=== PATIENT | female | born 1970 | race Caucasian/White ===

== ENCOUNTER 2017-03-22 22:31 | Emergency (ER) | payer OTHER | END 2017-03-23 04:58 | disposition home or self-care (01) | LOC: FTE 22:31 | DX: H60.91 Unspecified otitis externa, right ear (principal); I10 Essential (primary) hypertension; E11.9 Type 2 diabetes mellitus without complications; Z79.82 Long term (current) use of aspirin; Z79.84 Long term (current) use of oral hypoglycemic drugs | CPT/HCPCS: 99284; Z7502 ==

== ENCOUNTER 2017-06-25 22:45 | Emergency (ER) | payer OTHER | END 2017-06-26 01:31 | disposition home or self-care (01) | LOC: FTE 22:45 → E/R 06-26 01:31 | DX: B36.9 Superficial mycosis, unspecified (principal); I10 Essential (primary) hypertension; E11.9 Type 2 diabetes mellitus without complications; Z79.82 Long term (current) use of aspirin; Z79.84 Long term (current) use of oral hypoglycemic drugs | CPT/HCPCS: 99283; Z7502 ==

== ENCOUNTER 2017-12-10 08:52 | Emergency (ER) | payer OTHER ==
[2017-12-10 09:58] LABS: URINE BLOOD (Dip) POC Negative (NEGATIVE); URINE GLUCOSE (Dip) POC Negative (NEGATIVE); URINE KETONES (Dip) POC Trace (NEGATIVE); URINE LEUKOCYTE EST (Dip) POC Negative (NEGATIVE); URINE NITRITE (Dip) POC Negative (NEGATIVE); URINE TOTAL PROTEIN POC Trace (NEGATIVE)
[2017-12-10] MEDS: SOD CHLORIDE 0.9% 1,000 ML IV (10:03)
[2017-12-10] MEDS: PROCHLORPERAZINE 10 MG INJ IV (10:03)
[2017-12-10 10:07] LABS: ADD MAN DIFF? NO
[2017-12-10 10:09] LABS: BASOPHIL # 0.1 10^3/ul (0.0-0.1); BASOPHILS % 0.5 % (0.0-2.0); EOSINOPHILS # 0.5 10^3/ul (0.0-0.5); EOSINOPHILS % 4.1 % (0.0-7.0); HEMATOCRIT 40.8 % (37.0-47.0); HEMOGLOBIN 12.6 g/dl (12.0-16.0); LYMPHOCYTES # 3.6 10^3/ul (0.8-2.9); LYMPHOCYTES % 32.7 % (15.0-51.0); MEAN CORPUSCULAR HEMOGLOBIN 26.8 pg (29.0-33.0); MEAN CORPUSCULAR HGB CONC 30.9 g/dl (32.0-37.0); MEAN CORPUSCULAR VOLUME 86.8 fl (82.0-101.0); MEAN PLATELET VOLUME 10.8 fl (7.4-10.4); MONOCYTE # 0.5 10^3/ul (0.3-0.9); MONOCYTES % 4.7 % (0.0-11.0); NEUTROPHIL # 6.4 10^3/ul (1.6-7.5); NEUTROPHILS % 57.7 % (39.0-77.0); PLATELET COUNT 388 10^3/UL (140-415); RED CELL DISTRIBUTION WIDTH 15.3 % (11.5-14.5)
[2017-12-10 10:11] LABS: ADD UMIC YES; UR ASCORBIC ACID NEGATIVE (NEGATIVE); UR BILIRUBIN (Dip) NEGATIVE (NEGATIVE); UR BLOOD (Dip) 2+ mg/dL (NEGATIVE); UR CLARITY CLEAR (CLEAR); UR COLOR YELLOW (YELLOW); UR GLUCOSE (Dip) NEGATIVE (NEGATIVE); UR KETONES (Dip) NEGATIVE (NEGATIVE); UR LEUKOCYTE ESTERASE (Dip) NEGATIVE Leu/ul (NEGATIVE); UR NITRITE (Dip) NEGATIVE (NEGATIVE); UR RBC 1 /HPF (0-5); UR SPECIFIC GRAVITY (Dip) 1.021 (1.003-1.030); UR SQUAMOUS EPITHELIAL CELL FEW /HPF (FEW); UR TOTAL PROTEIN (Dip) NEGATIVE (NEGATIVE); UR UROBILINOGEN (Dip) NEGATIVE (NEGATIVE); UR WBC 1 /HPF (0-5)
[2017-12-10 10:30] LABS: ALANINE AMINOTRANSFERASE 168 IU/L (13-69); ALBUMIN/GLOBULIN RATIO 0.88; ALKALINE PHOSPHATASE 107 IU/L (42-121); ANION GAP 18 (8-16); ASPARTATE AMINO TRANSFERASE 149 IU/L (15-46); BILIRUBIN,INDIRECT 0.4 mg/dl (0-1.1); BILIRUBIN,TOTAL 0.4 mg/dl (0.2-1.3); BLOOD UREA NITROGEN 16 mg/dl (7-20); CALCIUM 9.5 mg/dl (8.4-10.2); CARBON DIOXIDE 24 mmol/L (21-31); CHLORIDE 102 mmol/L (97-110); CREATININE 0.76 mg/dl (0.44-1.00); GLUCOSE 259 mg/dl (70-220); POTASSIUM 4.1 mmol/L (3.5-5.1); SODIUM 140 mmol/L (135-144); TOTAL PROTEIN 8.5 g/dl (6.1-8.1)
== END 2017-12-10 12:49 | disposition home or self-care (01) ==
LOC: FTE 08:52
DX: R42 Dizziness and giddiness (principal); E11.65 Type 2 diabetes mellitus with hyperglycemia; I10 Essential (primary) hypertension; Z79.84 Long term (current) use of oral hypoglycemic drugs; Z79.82 Long term (current) use of aspirin
CPT/HCPCS: 36415; 80053; 81001; 81003; 81025; 85025; 96374; 99284-25

== ENCOUNTER 2018-05-08 08:06 | Emergency (ER) | payer OTHER ==
[2018-05-08] MEDS: IPRATROPIUM (NEB) 0.5 MG/2.5 ML AMP INH (09:17)
[2018-05-08] MEDS: ALBUTEROL 0.083% (NEB) 2.5 MG/3 ML AMP HHN (09:18)
[2018-05-08] MEDS: AZITHROMYCIN 250 MG TAB PO (09:23)
[2018-05-08] MEDS: METHYLPREDNISOLONE 125 MG INJ IV (09:23)
[2018-05-08] MEDS: CEFTRIAXONE 1 GM/50 ML (PMX) 50 ML IVPB (09:23)
[2018-05-08] MEDS: SOD CHLORIDE 0.9% 500 ML IV (09:23)
[2018-05-08] MEDS: SODIUM CHLORIDE 0.9% 1L BAG IV* (09:32)
[2018-05-08 09:36] LABS: ADD MAN DIFF? NO
[2018-05-08 09:39] LABS: WHITE BLOOD COUNT 8.9 10^3/ul (4.8-10.8)
[2018-05-08 09:39] LABS: BASOPHIL # 0.1 10^3/ul (0.0-0.1); BASOPHILS % 0.7 % (0.0-2.0); EOSINOPHILS # 0.5 10^3/ul (0.0-0.5); EOSINOPHILS % 5.4 % (0.0-7.0); HEMATOCRIT 41.1 % (37.0-47.0); HEMOGLOBIN 13.1 g/dl (12.0-16.0); LYMPHOCYTES % 33.6 % (15.0-51.0); MEAN CORPUSCULAR HGB CONC 31.9 g/dl (32.0-37.0); MEAN CORPUSCULAR VOLUME 84.7 fl (82.0-101.0); MEAN PLATELET VOLUME 10.9 fl (7.4-10.4); MONOCYTE # 0.9 10^3/ul (0.3-0.9); NEUTROPHIL # 4.4 10^3/ul (1.6-7.5); PLATELET COUNT 347 10^3/UL (140-415); RED BLOOD COUNT 4.85 10^6/ul (4.20-5.40); RED CELL DISTRIBUTION WIDTH 15.6 % (11.5-14.5)
[2018-05-08 09:57] LABS: ANION GAP 11 (5-13); BLOOD UREA NITROGEN 14 mg/dl (7-20); CALCIUM 10.1 mg/dl (8.4-10.2); CARBON DIOXIDE 27 mmol/L (21-31); CHLORIDE 103 mmol/L (97-110); CREATININE 0.63 mg/dl (0.44-1.00); Estimated GFR > 60 mL/min (>60); GLUCOSE 166 mg/dl (70-220); SODIUM 141 mmol/L (135-144)
[2018-05-08 10:07] LABS: B-TYPE NATRIURETIC PEPTIDE 27 PG/ML (0-125); TROPONIN-I < 0.012 ng/ml (0.000-0.120)
[2018-05-08 10:20] LABS: URINE PH (Dip) POC 5.5 (5.0-8.5)
[2018-05-08 10:20] LABS: URINE BLOOD (Dip) POC Negative (NEGATIVE); URINE GLUCOSE (Dip) POC Negative (NEGATIVE); URINE KETONES (Dip) POC Negative (NEGATIVE); URINE LEUKOCYTE EST (Dip) POC Negative (NEGATIVE); URINE NITRITE (Dip) POC Negative (NEGATIVE); URINE TOTAL PROTEIN POC Negative (NEGATIVE)
[2018-05-08] MEDS: LORAZEPAM 2 MG INJ IV (11:08)
[2018-05-08] MEDS: SOD CHLORIDE 0.9% 100 ML (11:28)
[2018-05-08] MEDS: IOHEXOL 100 ML (11:29)
[2018-05-08] MEDS: IOHEXOL 300MG/ML 150 ML BTL (11:29)
[2018-05-08 12:49] LABS: AADO2 Arterial 34.8 mmHg (7.0-24.0); Arterial Base Excess -5.2 mmol/L (-3.0-3); Arterial Blood Gas Oxygen Sat 93.1 mmHG (95.0-98.0); Arterial COHb 0 % (0.0-3.0); Arterial Fraction of Oxyhgb 92.8 % (93.0-99.0); Arterial HCO3 19.8 mmol/L (22.0-26.0); Arterial MetHb 0.3 % (0.0-1.5); Arterial pCO2 37.1 mmhg (35-45); MODE ROOM AIR; Site Right Brachial
== END 2018-05-08 14:14 | disposition home or self-care (01) ==
LOC: FTE 08:06
DX: J11.1 Influenza due to unidentified influenza virus with other respiratory manifestations (principal); E11.9 Type 2 diabetes mellitus without complications; I10 Essential (primary) hypertension; E66.01 Morbid (severe) obesity due to excess calories; Z68.42 Body mass index [BMI] 45.0-49.9, adult; Z79.82 Long term (current) use of aspirin; Z79.84 Long term (current) use of oral hypoglycemic drugs
CPT/HCPCS: 36415; 36600; 71045; 71260; 80048; 81003; 81025; 82803; 82962; 83605; 83880; 84484; 85025; 87040; 87400; 93005; 94664; 96365; 96366; 96375; 99285-25